=== PATIENT | male | born 1950 | race Caucasian/White ===

== ENCOUNTER 2019-01-04 16:49 | Emergency (ER) | payer MEDICARE ==
--- OUTSIDE RECORDS SUMMARY | 2019-01-04 17:09 | XMS REPORT | Continuity of Care Document ---
:1950 External Reference #:[id number] Author Name LeonardStacy winters Care Team Providers Name Role Phone Monica Ellis MD Primary Care Physician Unavailable Payers Date Identification Numbers Payment Provider Subscriber Effective: 2016 Policy Number: [id number] Medicare Blue Ppo [place] D Card PayID: [id number] [address] [address] JO ANN Fontanez [address] Effective: 2014 Policy Number: [id number] Medicare [place] D Card Expires: 2014 PayID: [id number] [address] [place] [address] Effective: 2014 Policy Number: [id number] Medicare [place] D Card Expires: 2014 PayID: [id number] [address] [place] [address] Effective: 2009 Policy Number: [id number] [facility] Ppo [place] D Card Expires: 2014 Group Name: Ppo [address] [address] PayID: [id number] JO ANN Leonard [address] Advance Directives Type Date Description Status Comment Other Directive 01/12/2018 Health Care Proxy Current and Verified Problems Active Problems Provider Date Benign essential hypertension Monika Sal, N.PRuben Onset: 10/09/2011 Gout Monika Sal, N.P. Onset: 10/09/2011 Hyperlipidemia Monika Sal N.P. Onset: 10/09/2011 Gastroesophageal reflux disease Monika Sal, N.PRuben Onset: 11/11/2012 Family History Date Family Member(s) Observation Comments Father due to CHF () - age 90 - PVD, CAD (60's), Dementia : (age 65 Mother due to Cancer, DM Years) Breast First Brother due to Cancer, () - (half Liver brother) age 60 - MS, ETOHA, Liver Cirrhosis Second Brother DM Overweight, ? 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 2.5mg Tablets Losartan Potassium 1 by mouth every 90tabs I10 Monika Sal, 01/12/2018 day N.P. 100mg Tablets Atorvastatin Calcium 1 by mouth every 90tabs E78.5 Monika Sal, 2017 day N.P. 10mg Tablets Cialis take by mouth as 8tabs Monika Sal, 11/10/2017 20mg Tablets directed as N.P. needed Omeprazole Take One Capsule 90caps I10 Monika Sal, 08/26/2017 20mg By Mouth Every N.P. Capsules DR Day Aspir-81 1 tablet daily 30tabs Unknown 81mg Tablets DR One A Day (Mvi) 1 PO qd Unknown Glucosamine daily Unknown Chondroitin 1500 Complex Hoffman-3 Fish Unknown Oil/Vitamin D3 [id number] Capsules Lutein Vision Blend Unknown Capsules History Medications Metoprolol Succinate ER 1 by mouth every 90tabs I10 Monika Sal, 2018 - 25mg day N.P. 12/18/2018 Tablets ER 24HR Sildenafil Citrate 1 - 2 tablets by 28tabs Monika Sal, 07/28/2017 - 20mg Tablets mouth N.P. 11/10/2017 approximately 1 hour before intercourse Cialis Take By Mouth as 20tabs F52.9 Monika Jonelle, 06/15/2017 - 20mg Tablets Directed as Needed N.P. 07/14/2017 Cialis 1 tablet every 3 14tabs F52.9 Monika Jonelle, 01/31/2016 - 10mg Tablets days as needed N.P. 06/15/2017 Cialis take as directed 20tabs F52.9 Monika Jonelle, 01/27/2015 - 20mg Tablets if needed N.P. 01/31/2016 Omeprazole take one capsule 90caps Monika Sal, 11/24/2012 - 40mg Capsules DR by mouth every day N.P. 08/26/2017 Omeprazole 1 po qd 90caps Monika Sal, 08/10/2012 - 20mg Capsules DR N.P. 11/24/2012 Losartan Potassium Take One Tablet By 90tabs I10 Monika Sal, 2010 - 50mg Tablets Mouth Every Day N.P. 01/12/2018 Losartan one by mouth daily 90tabs Camelia Pierce, 08/28/2010 - Potassium/Hydrochlorothia M.D., FACP 10/09/2011 zide 50-12.5mg Tablets Colchicine one by mouth twice 60tabs Camelia Pierce, 08/28/2010 - 0.6mg Tablets daily as needed M.D., FACP 10/09/2011 for gout Hydrochlorothiazide take one tablet by 90tabs Camelia Pierce, 07/04/2010 - 25mg mouth every M.D., FACP 08/28/2010 Tablets morning Viagra 1 tablet one hour 5tabs Monica - 50mg Tablets before intercourse Caleb M.DRuben 06/05/2010 as needed Fish Oil po qd 60caps Unknown - 1000mg Capsules 11/18/2017 Krill Oil Hoffman-3 take one Unknown - 500mg capsule/tablet 01/12/2018 Capsules daily by mouth Immunizations CPT Code Status Date Vaccine Lot # [id number] Given 06/13/2018 Influenza Virus Vaccine, Quadrivalent, Split, Preservative Free [id number] Given 05/18/2017 Fluzone High Dose [id number] Given 05/25/2016 Flu Vaccine NOS 56033 Given 06/13/2015 Influenza Virus Vaccine, Quadrivalent, Split, Preservative Free 01987 Given 01/27/2015 Pneumococcal Conjugate Vaccine 13 Valent For [id number] Intramuscular Use 06073 Given 01/26/2014 Pneumonia Vaccine [id number] Given 06/01/2012 Fluzone Vaccine [id number] Given 10/09/2011 Zoster (Zostavax) [id number] 57790 Given 06/05/2010 Influenza Virus 3Yrs & Over 52756 Given 05/05/2009 Influenza Virus 3Yrs & Over 43517 Given 06/13/2008 Influenza Virus 3Yrs & Over 41014 Given 06/13/2008 Influenza Virus 3Yrs & Over 68126 Given 06/23/2007 Influenza Virus 3Yrs & Over Vital Signs Date Vital Result Comment 12/18/2018 3:07pm Height 70 inches 5'10" Weight 166.00 lb Heart Rate 56 /min BP Systolic Sitting 101 mmHg BP Diastolic Sitting 60 mmHg Body Temperature 97.5 F O2 % BldC Oximetry 96 % BMI (Body Mass Index) 23.8 kg/m2 12/02/2018 11:33am Height 70 inches 5'10" Weight 168.50 lb Heart Rate 60 /min BP Systolic Sitting 131 mmHg 142/70 pt home machine BP Diastolic Sitting 71 mmHg 142/70 pt home machine Body Temperature 97.1 F O2 % BldC Oximetry 97 % BMI (Body Mass Index) 24.2 kg/m2 07/15/2018 12:54pm Height 70 inches 5'10" Weight 174.50 lb Heart Rate 60 /min BP Systolic 117 mmHg BP Diastolic 55 mmHg Body Temperature 97.0 F O2 % BldC Oximetry 98 % BMI (Body Mass Index) 25.0 kg/m2 01/12/2018 11:12am Weight 172.75 lb Heart Rate 58 /min BP Systolic 124 mmHg BP Diastolic 60 mmHg Body Temperature 97.1 F O2 % BldC Oximetry 97 % 11/21/2017 2:36pm Weight 176.00 lb Heart Rate 65 /min BP Systolic Sitting 156 mmHg BP Diastolic Sitting 72 mmHg BP Systolic Standing 162 mmHg BP Diastolic Standing 76 mmHg O2 % BldC Oximetry 96 % 07/14/2017 1:27pm Height 70 inches 5'10" Weight 172.00 lb Heart Rate 66 /min BP Systolic Sitting 124 mmHg BP Diastolic Sitting 64 mmHg O2 % BldC Oximetry 98 % BMI (Body Mass Index) 24.7 kg/m2 08/01/2016 9:42am Weight 175.00 lb Heart Rate 60 /min BP Systolic Sitting 124 mmHg BP Diastolic Sitting 78 mmHg Respiratory Rate 14 /min Body Temperature 98.5 F O2 % BldC Oximetry 96 % 01/31/2016 9:08am Height 70 inches 5'10" Weight 176.25 lb Heart Rate 58 /min BP Systolic Sitting 136 mmHg BP Diastolic Sitting 73 mmHg Body Temperature 96.9 F O2 % BldC Oximetry 98 % BMI (Body Mass Index) 25.3 kg/m2 07/31/2015 8:38am Height 70.5 inches 5'10.50" Weight 176.00 lb Heart Rate 62 /min BP Systolic Sitting 122 mmHg BP Diastolic Sitting 64 mmHg Body Temperature 96.9 F Pain Level 0 O2 % BldC Oximetry 98 % BMI (Body Mass Index) 24.9 kg/m2 01/27/2015 9:16am Height 70.5 inches 5'10.50" Weight 172.00 lb Heart Rate 60 /min BP Systolic Sitting 119 mmHg BP Diastolic Sitting 71 mmHg BMI (Body Mass Index) 24.3 kg/m2 07/27/2014 8:36am Height 70.5 inches 5'10.50" Weight 172.00 lb Heart Rate 64 /min BP Systolic Sitting 128 mmHg BP Diastolic Sitting 70 mmHg Body Temperature 97.9 F BMI (Body Mass Index) 24.3 kg/m2 01/26/2014 10:44am Height 70.5 inches 5'10.50" Weight 172.25 lb Heart Rate 64 /min BP Systolic 132 mmHg BP Diastolic 74 mmHg Respiratory Rate 16 /min Body Temperature 96.0 F BMI (Body Mass Index) 24.4 kg/m2 11/11/2012 9:23am Height 70.25 inches 5'10.25" Weight 165.75 lb Heart Rate 60 /min BP Systolic Sitting 120 mmHg BP Diastolic Sitting 62 mmHg BMI (Body Mass Index) 23.6 kg/m2 04/08/2012 1:30pm Height 70 inches 5'10" Weight 170.00 lb Heart Rate 64 /min BP Systolic Sitting 136 mmHg BP Diastolic Sitting 64 mmHg BMI (Body Mass Index) 24.4 kg/m2 10/09/2011 1:18pm Height 70 inches 5'10" Weight 173.00 lb Heart Rate 72 /min BP Systolic Sitting 128 mmHg BP Diastolic Sitting 68 mmHg BMI (Body Mass Index) 24.8 kg/m2 03/29/2011 1:26pm Height 70 inches 5'10" Weight 174.00 lb Heart Rate 64 /min BP Systolic Sitting 120 mmHg L BP Diastolic Sitting 62 mmHg L BMI (Body Mass Index) 25.0 kg/m2 09/28/2010 1:31pm Weight 172.00 lb Heart Rate 60 /min BP Systolic 124 mmHg BP Diastolic 70 mmHg 08/28/2010 1:34pm Weight 177.25 lb Heart Rate 64 /min BP Systolic 150 mmHg BP Diastolic 84 mmHg 08/07/2010 1:13pm Weight 173.00 lb Heart Rate 68 /min BP Systolic Sitting 130 mmHg BP Diastolic Sitting 68 mmHg 07/04/2010 1:15pm Weight 173.75 lb Heart Rate 60 /min BP Systolic 136 mmHg BP Diastolic 70 mmHg 06/05/2010 1:29pm Height 70.50 inches 5'10.50" Weight 177.75 lb Heart Rate 60 /min BP Systolic 148 mmHg BP Diastolic 78 mmHg BMI (Body Mass Index) 25.1 kg/m2 Results Test Date Facility Test Result H/L Range Note CBC Auto Diff 12/02/2018 [facility] White Blood 5.4 10^3/uL N 3.5-10.[address] [place] [address] [phone] Red Blood Count 4.83 10^6/uL N 4.18-5.48 Hemoglobin 15.9 g/dL N 14.0-18.0 Hematocrit 46 % N 36-46 Mean Corpuscular Volume 96 fL High 80-94 Mean Corpuscular Hemoglobin 33 pg High 27-31 Mean Corpuscular HGB Conc 34 g/dL N 31-36 Red Cell Distribution Width 13 % N 10.5-15 Platelet Count 159 10^3/uL N 150-450 Mean Platelet Volume 10.4 fL N 7.4-10.4 Abs Neutrophils 3.8 10^3/uL N 1.5-7.7 Abs Lymphocytes 1.1 10^3/uL N 1.0-4.8 Abs Monocytes 0.4 10^3/uL N 0-0.8 Abs Eosinophils 0.1 10^3/uL N 0-0.6 Abs Basophils 0 10^3/uL N 0-0.2 Abs Nucleated RBC 0 10^3/uL Granulocyte % 70.2 % Lymphocyte % 20.1 % Monocyte % 7.5 % Eosinophil % 1.6 % Basophil % 0.6 % Nucleated Red Blood Cells % 0.1 Basic Metabolic Panel 12/02/2018 [facility] Sodium 140 mmol/L N 135-145 [address] [place] [address] [phone] Potassium 4.3 mmol/L N 3.5-5.0 Chloride 101 mmol/L N 101-111 Co2 Carbon Dioxide 29 mmol/L N 22-32 Anion Gap 10 mmol/L N 2-11 Glucose 88 mg/dL N 70-100 Blood Urea Nitrogen 15 mg/dL N 6-24 Creatinine 0.98 mg/dL N 0.67-1.17 BUN/Creatinine Ratio 15.3 N 8-20 Calcium 9.8 mg/dL N 8.6-10.3 Egfr Non- 75.6 >60 Egfr 91.5 >60 1 Laboratory test 12/02/2018 [facility] TSH (Thyroid 0.88 mcIU/mL N 0.34-5.[address] Stim Horm) [place] [address] [phone] Magnesium 2.2 mg/dL N 1.9-2.7 Comp Metabolic Panel 07/15/2018 [facility] Sodium 143 mmol/L N 135-[address] [place] [address] [phone] Potassium 4.4 mmol/L N 3.5-5.0 Chloride 107 mmol/L N 101-111 Co2 Carbon Dioxide 31 mmol/L N 22-32 Anion Gap 5 mmol/L N 2-11 Glucose 103 mg/dL High 70-100 Blood Urea Nitrogen 14 mg/dL N 6-24 Creatinine 0.95 mg/dL N 0.67-1.17 BUN/Creatinine Ratio 14.7 N 8-20 Calcium 9.6 mg/dL N 8.6-10.3 Total Protein 6.4 g/dL N 6.4-8.9 Albumin 4.4 g/dL N 3.2-5.2 Globulin 2.0 g/dL N 2-4 Albumin/Globulin Ratio 2.2 N 1-3 Total Bilirubin 0.70 mg/dL N 0.2-1.0 Alkaline Phosphatase 71 U/L N 34-104 Alt 18 U/L N 7-52 Ast 20 U/L N 13-39 Egfr Non- 78.4 >60 Egfr 94.8 >60 2 Lipid Profile 07/15/2018 [facility] Triglycerides 91 mg/dL 3 (Trig/Chol/HDL) [address] [place] [address] [phone] Cholesterol 135 mg/dL 4 HDL Cholesterol 59.7 mg/dL 5 LDL Cholesterol 57 mg/dL 6 Lipid Profile 12/29/2017 [facility] Triglycerides 99 mg/dL 7 (Trig/Chol/HDL) [address] [place] [address] [phone] Cholesterol 122 mg/dL 8 HDL Cholesterol 56.6 mg/dL 9 LDL Cholesterol 46 mg/dL 10 Laboratory test finding 12/29/2017 [facility] Ast (Sgot) 18 U/L N 13-[address] [place] [address] [phone] Alt 17 U/L N 7-52 12 Laboratory test 07/16/2017 [facility] PSA Screening 1.054 N 0- 4.[address] ng/[place] [address] [phone] Testosterone 07/16/2017 [facility] Free 10.2 3.47-13.0 14 Free & Total [address] Testosterone ng/[place] [address] ng/dl [phone] Testosterone 601 ng/dL 240-950 15 Laboratory 07/16/2017 [facility] Hepatitis C Nonreactive Nonreactive 16 test finding [address] Antibody [place], [place] [phone] Lipid Profile 07/16/2017 [facility] Triglycerides 133 mg/dL 17 (Trig/Chol/HD [address] L) [place] [address] [phone] Cholesterol 181 mg/dL 18 HDL Cholesterol 51.7 mg/dL 19 LDL Cholesterol 103 mg/dL 20 Comp Metabolic Panel 07/16/2017 [facility] Sodium 140 mmol/L N 133-[address] [place] [address] [phone] Potassium 4.1 mmol/L N 3.5-5.0 Chloride 105 mmol/L N 101-111 Co2 Carbon Dioxide 30 mmol/L N 22-32 Anion Gap 5 mmol/L N 2-11 Glucose 96 mg/dL N 70-100 Blood Urea Nitrogen 14 mg/dL N 6-24 Creatinine 0.95 mg/dL N 0.67-1.17 BUN/Creatinine Ratio 14.7 N 8-20 Calcium 9.7 mg/dL N 8.6-10.3 Total Protein 6.5 g/dL N 6.4-8.9 Albumin 4.3 g/dL N 3.2-5.2 Globulin 2.2 g/dL N 2-4 Albumin/Globulin Ratio 2.0 N 1-3 Total Bilirubin 0.70 mg/dL N 0.2-1.0 Alkaline Phosphatase 80 U/L N 34-104 Alt 15 U/L N 7-52 Ast 18 U/L N 13-39 Egfr Non- 78.6 >60 Egfr 101.1 >60 21 Laboratory test 04/18/2016 [facility] Surgical SEE RESULT 22, [address] [place] [address] [phone] Comp Metabolic 02/07/2016 [facility] Sodium 139 mmol/L N 133- [address] [place] [address] [phone] Potassium 4.6 mmol/L N 3.5-5.0 Chloride 103 mmol/L N 101-111 Co2 Carbon Dioxide 31 mmol/L N 22-32 Anion Gap 5 mmol/L N 2-11 Glucose 97 mg/dL N 70-100 Blood Urea Nitrogen 15 mg/dL N 6-24 Creatinine 1.01 mg/dL N 0.67-1.17 BUN/Creatinine Ratio 14.9 N 8-20 Calcium 9.9 mg/dL N 8.6-10.3 Total Protein 6.8 g/dL N 6.4-8.9 Albumin 4.5 g/dL N 3.2-5.2 Globulin 2.3 g/dL N 2-4 Albumin/Globulin Ratio 2.0 N 1-3 Total Bilirubin 0.80 mg/dL N 0.2-1.0 Alkaline Phosphatase 77 U/L N 34-104 Alt 16 U/L N 7-52 Ast 18 U/L N 13-39 Egfr Non- 73.7 N >60 Egfr 94.8 N >60 24 Lipid Profile 02/07/2016 [facility] Triglycerides 103 mg/dL N 25 (Trig/Chol/HDL) [address] [place] [address] [phone] Cholesterol 204 mg/dL N 26 HDL Cholesterol 58.3 mg/dL N 27 LDL Cholesterol 125 mg/dL N 28 Basic Metabolic Panel 07/12/2015 [facility] Sodium 138 mmol/L N 133-145 [address] [place] [address] [phone] Potassium 4.4 mmol/L N 3.5-5.0 Chloride 104 mmol/L N 101-111 Co2 Carbon Dioxide 28 mmol/L N 22-32 Anion Gap 6 mmol/L N 2-11 Glucose 94 mg/dL N 70-100 Blood Urea Nitrogen 14 mg/dL N 6-24 Creatinine 0.94 mg/dL N 0.67-1.17 BUN/Creatinine Ratio 14.9 N 8-20 Calcium 9.7 mg/dL N 8.6-10.3 Egfr Non- 80.0 N >60 Egfr 102.9 N >60 29 Comp Metabolic Panel 07/19/2014 [facility] Sodium 140 mmol/L N 133-145 [address] [place] [address] [phone] Potassium 4.1 mmol/L N 3.5-5.0 30 Chloride 105 mmol/L N 101-111 Co2 Carbon Dioxide 29 mmol/L N 22-32 Anion Gap 6 mmol/L N 2-11 Glucose 96 mg/dL N 70-100 Blood Urea Nitrogen 13 mg/dL N 6-24 Creatinine 1.04 mg/dL N 0.67-1.17 BUN/Creatinine Ratio 12.5 N 8-20 Calcium 9.3 mg/dL N 8.6-10.3 Total Protein 6.3 g/dL Low 6.4-8.9 Albumin 4.3 g/dL N 3.2-5.2 Globulin 2.0 g/dL N 2-4 Albumin/Globulin Ratio 2.2 N 1-3 Total Bilirubin 0.80 mg/dL N 0.2-1.0 Alkaline Phosphatase 62 U/L N 34-104 Alt 15 U/L N 7-52 Ast 20 U/L N 13-39 Egfr Non- 71.5 N >60 Egfr 91.9 N >60 31 Laboratory test 07/19/2014 [facility] Uric Acid 6.2 mg/dL N 4.4-7.6 finding [address] [place] [address] [phone] Lipid Profile 07/19/2014 [facility] Triglycerides 106 mg/dL N 32 (Trig/Chol/HDL) [address] [place] [address] [phone] Cholesterol 158 mg/dL N 33 HDL Cholesterol 48.4 mg/dL N 34 LDL Cholesterol 88 mg/dL N 35 Laboratory test 11/17/2012 [facility] PSA Diagnostic 1.0 ng/mL 0-4.0 36 finding [address] [place] [address] [phone] Lipid Profile 11/17/2012 [facility] Triglycerides 113 mg/dL 40-200 (Trig/Chol/HDL) [address] [place] [address] [phone] Cholesterol 160 mg/dL Less than 200 HDL Cholesterol 51 mg/dL 40-60 37 Cholesterol/HDL Ratio 3.1 Average 1-4.44 LDL Cholesterol 86.4 mg/dL Less Than 100 38 Comp Metabolic Panel 11/17/2012 [facility] Sodium 139 mmol/L 133-145 [address] [place] [address] [phone] Potassium 4.1 mmol/L 3.5-5.0 Chloride 104 mmol/L 101-111 Co2 Carbon Dioxide 28.0 mmol/L 22-32 Anion Gap 7.0 mmol/L 2-11 Glucose 96 mg/dL 70-100 Blood Urea Nitrogen 12 mg/dL 6-24 Creatinine 1.00 mg/dL 0.50-1.40 BUN/Creatinine Ratio 12.0 8-20 Calcium 9.8 mg/dL 8.1-9.9 Total Protein 6.4 g/dL 6.2-8.1 Albumin 4.2 g/dL 3.2-5.2 Globulin 2.2 g/dL 2-4 Albumin/Globulin Ratio 1.9 1-3 Total Bilirubin 1.0 mg/dL 0.4-1.5 Alkaline Phosphatase 68 U/L 30-110 Alt 20 U/L 14-54 Ast 23 U/L 12-42 Egfr Non- 75.2 >60 Egfr 96.7 >60 39 Surgical 05/26/2012 [facility] Surgical [address] Pathology <SEE NOTE> [place] [address] [phone] Comp Metabolic 10/14/2011 [facility] Sodium 137 mmol/L 135- Panel [address] [place] [address] [phone] Potassium 4.4 mmol/L 3.5-5.0 Chloride 104 mmol/L 101-111 Co2 (Carbon Dioxide) 29.0 mmol/L 22-32 Anion Gap 4.0 mmol/L 2-11 41 Glucose 107 mg/dL High 70-100 BUN 10 mg/dL 6-24 Creatinine 1.1 mg/dL 0.50-1.40 One Over Creatinine 0.90 BUN/Creatinine Ratio 9.1 8-20 Calcium 9.3 mg/dL 8.1-9.9 Total Protein 6.4 GM/DL 6.2-8.1 Albumin 4.3 GM/DL 3.2-5.2 Globulin 2.1 GM/DL 2-4 Albumin/Globulin Ratio 2.0 1-3 Bilirubin Total 1.1 mg/dL 0.4-1.5 42 Alkaline Phosphatase 64 U/L 39-117 Alt (SGPT) 21 U/L 17-63 Ast (Sgot) 22 U/L 12-42 eGFR Non- 67.6 > 60 eGFR 86.9 > 60 43 Lipid Profile 10/14/2011 [facility] Triglyceride 204 mg/dL High 40-200 (Trig/Chol/HDL) [address] [place] [address] [phone] Cholesterol 185 mg/dL Less Than 200 44 High Density Lipoprotein 47 mg/dL 40-60 45 Cholesterol/HDL Ratio 3.94 AVERAGE 1-4.97 Low Density Lipoprotein 97 mg/dL Less Than 100 46 Laboratory test 10/14/2011 [facility] Uric Acid 6.3 mg/dL 2.6 -7.2 finding [address] [place] [address] [phone] PSA 0.87 NG/ML 0-4 47 1 Because ethnic data is not always readily available, this report includes an eGFR for both -Americans and non- Americans. The National Kidney Disease Education Program (NKDEP) does not endorse the use of the MDRD equation for patients that are not between the ages of 18 and 70, are , have extremes of body size, muscle mass, or nutritional status, or are non- or non-. According to the National Kidney Foundation, irrespective of diagnosis, the stage of the disease is based on the level of kidney function: Stage Description GFR(mL/min/1.73 m(2)) 1 Kidney damage with normal or decreased GFR 90 2 Kidney damage with mild decrease in GFR 60-89 3 Moderate decrease in GFR 30-59 4 Severe decrease in GFR 15-29 5 Kidney failure <15 (or dialysis) 2 Because ethnic data is not always readily available, this report includes an eGFR for both -Americans and non- Americans. The National Kidney Disease Education Program (NKDEP) does not endorse the use of the MDRD equation for patients that are not between the ages of 18 and 70, are , have extremes of body size, muscle mass, or nutritional status, or are non- or non-. According to the National Kidney Foundation, irrespective of diagnosis, the stage of the disease is based on the level of kidney function: Stage Description GFR(mL/min/1.73 m(2)) 1 Kidney damage with normal or decreased GFR 90 2 Kidney damage with mild decrease in GFR 60-89 3 Moderate decrease in GFR 30-59 4 Severe decrease in GFR 15-29 5 Kidney failure <15 (or dialysis) 3 Desirable: <150 Borderline High: 150-199 High: 200-499 Very High: >500 4 Desirable: <200 Borderline High: 200-239 High: >239 5 Low: <40 Desirable: 40-60 High: >60 6 Desirable: <100 Near Optimal: 100-129 Borderline High: 130-159 High: 160-189 Very High: >189 7 Desirable: <150 Borderline High: 150-199 High: 200-499 Very High: >500 8 Desirable: <200 Borderline High: 200-239 High: >239 9 Low: <40 Desirable: 40-60 High: >60 10 Desirable: <100 Near Optimal: 100-129 Borderline High: 130-159 High: 160-189 Very High: >189 11 FASTING 10 HOUR DO THIS IN ABOUT 6 WEEKS 12 FASTING 10 HOUR DO THIS IN ABOUT 6 WEEKS 13 Serum levels of PSA measured using the [employer] DXI Hybritech immunoassay should not be interpreted as absolute evidence of the presence or absence of disease. The PSA value should be used in conjunction with other pertinent clinical diagnostic procedures. The values obtained with different assay methods or kits cannot be used interchangeably. 14 ADDITIONAL INFORMATION Testing performed by [facility]. This test was developed and its performance characteristics determined by [facility] in a manner consistent with CLIA requirements. This test has not been cleared or approved by the U.S. Food and Drug Administration. 15 ADDITIONAL INFORMATION Testing performed by Liquid Chromatography-Tandem Mass Spectrometry (LC-MS/MS). This test was developed and its performance characteristics determined by [facility] in a manner consistent with CLIA requirements. This test has not been cleared or approved by the U.S. Food and Drug Administration. Test Performed by: [facility] [address] [place] [address] 16 FASTING 10 HOUR 17 Desirable: <150 Borderline High: 150-199 High: 200-499 Very High: >500 18 Desirable: <200 Borderline High: 200-239 High: >239 19 Low: <40 Desirable: 40-60 High: >60 20 Desirable: <100 Near Optimal: 100-129 Borderline High: 130-159 High: 160-189 Very High: >189 21 Because ethnic data is not always readily available, this report includes an eGFR for both -Americans and non- Americans. The National Kidney Disease Education Program (NKDEP) does not endorse the use of the MDRD equation for patients that are not between the ages of 18 and 70, are , have extremes of body size, muscle mass, or nutritional status, or are non- or non-. According to the National Kidney Foundation, irrespective of diagnosis, the stage of the disease is based on the level of kidney function: Stage Description GFR(mL/min/1.73 m(2)) 1 Kidney damage with normal or decreased GFR 90 2 Kidney damage with mild decrease in GFR 60-89 3 Moderate decrease in GFR 30-59 4 Severe decrease in GFR 15-29 5 Kidney failure <15 (or dialysis) 22 [id number] 23 SEE RESULT BELOW Name: HEAVEN URENA : [address]: Hernando Snyder MD Acct: [id number] Unit: [id number] AGE: 65 Location: [facility] Re04/18/16 SEX: M Status: DEP REF SPEC: [id number] MICHAEL: 04/18/16-[address] [facility] [address]: Hernando Snyder MD REQ: [id number] RECD: 04/18/16-1299 STATUS: JALEN ANDREW DR: Monika Sal REGISTER IN CHANCERY _ ORDERED: LEVEL IV COMMENTS: [id number] FINAL DIAGNOSIS Gastroesophageal junction, biopsy: -- Columnar-type mucosa with mild chronic inflammation. -- Negative for intestinal metaplasia and dysplasia. CLINICAL HISTORY No history given POST-OPERATIVE DIAGNOSIS Esophagus - Hinton's, biopsied; stomach and duodenum - normal GROSS DESCRIPTION The specimen is received in formalin labeled, EG Junction Biopsy, and consists of a 0.7 x 0.2 x 0.1 cm pineda irregular soft tissue fragment, which is submitted entirely in one cassette. Signed (signature on file) Laura Bautista MD [id number] END OF REPORT * ML=Testing performed at Main Lab DEPARTMENT OF PATHOLOGY, [address] [place] [address] Dewayne Worley M.D. Director [facility] # [id number] 24 Because ethnic data is not always readily available, this report includes an eGFR for both -Americans and non- Americans. The National Kidney Disease Education Program (NKDEP) does not endorse the use of the MDRD equation for patients that are not between the ages of 18 and 70, are , have extremes of body size, muscle mass, or nutritional status, or are non- or non-. According to the National Kidney Foundation, irrespective of diagnosis, the stage of the disease is based on the level of kidney function: Stage Description GFR(mL/min/1.73 m(2)) 1 Kidney damage with normal or decreased GFR 90 2 Kidney damage with mild decrease in GFR 60-89 3 Moderate decrease in GFR 30-59 4 Severe decrease in GFR 15-29 5 Kidney failure <15 (or dialysis) 25 Desirable <150 Borderline high 150-199 High 200-499 Very High >500 26 Desirable <200 Borderline high 200-239 High >239 27 Low <40 Desirable: 40-60 High: >60 28 Desirable: <100 mg/dL Near Optimal: 100-129 mg/dL Borderline High: 130-159 mg/dL High: 160-189 mg/dL Very High: >189 mg/dL 29 Because ethnic data is not always readily available, this report includes an eGFR for both -Americans and non- Americans. The National Kidney Disease Education Program (NKDEP) does not endorse the use of the MDRD equation for patients that are not between the ages of 18 and 70, are , have extremes of body size, muscle mass, or nutritional status, or are non- or non-. According to the National Kidney Foundation, irrespective of diagnosis, the stage of the disease is based on the level of kidney function: Stage Description GFR(mL/min/1.73 m(2)) 1 Kidney damage with normal or decreased GFR 90 2 Kidney damage with mild decrease in GFR 60-89 3 Moderate decrease in GFR 30-59 4 Severe decrease in GFR 15-29 5 Kidney failure <15 (or dialysis) 30 Potassium reference range changed effective 07/03/14 31 Because ethnic data is not always readily available, this report includes an eGFR for both -Americans and non- Americans. The National Kidney Disease Education Program (NKDEP) does not endorse the use of the MDRD equation for patients that are not between the ages of 18 and 70, are , have extremes of body size, muscle mass, or nutritional status, or are non- or non-. According to the National Kidney Foundation, irrespective of diagnosis, the stage of the disease is based on the level of kidney function: Stage Description GFR(mL/min/1.73 m(2)) 1 Kidney damage with normal or decreased GFR 90 2 Kidney damage with mild decrease in GFR 60-89 3 Moderate decrease in GFR 30-59 4 Severe decrease in GFR 15-29 5 Kidney failure <15 (or dialysis) 32 Desirable <150 Borderline high 150-199 High 200-499 Very High >500 33 Desirable <200 Borderline high 200-239 High >239 34 Low <40 Desirable: 40-60 High: >60 35 Desirable <100 Near Optimal 100-129 Borderline high 130-159 High 160-189 Very High >189 36 Serum levels of PSA measured using the [employer] DXI Hybritech immunoassay should not be interpreted as absolute evidence of the presence or absence of disease. The PSA value should be used in conjunction with other pertinent clinical diagnostic procedures. The values obtained with different assay methods or kits cannot be used interchangeably. 37 HDL Interpretation: Undesirable: High Risk: Less than 40 MG/DL Desirable: Low Risk: Greater than 60 MG/DL 38 LDL Interpretation: Low Risk Optimal Level: LDL Less than 100 MG/DL Near or Above Optimal: LDL 100-129 MG/DL Borderline High Risk: LDL 130-159 MG/DL High Risk: LDL 160-189 MG/DL Very High Risk: LDL Greater than 189 MG/DL 39 Because ethnic data is not always readily available, this report includes an eGFR for both -Americans and non- Americans. The National Kidney Disease Education Program (NKDEP) does not endorse the use of the MDRD equation for patients that are not between the ages of 18 and 70, are , have extremes of body size, muscle mass, or nutritional status, or are non- or non-. According to the National Kidney Foundation, irrespective of diagnosis, the stage of the disease is based on the level of kidney function: Stage Description GFR(mL/min/1.73 m(2)) 1 Kidney damage with normal or decreased GFR 90 2 Kidney damage with mild decrease in GFR 60-89 3 Moderate decrease in GFR 30-59 4 Severe decrease in GFR 15-29 5 Kidney failure <15 (or dialysis) 40 ---- RUN DATE: 05/28/12 [facility] NMI LIVE PAGE 1 RUN TIME: 1501 Specimen Inquiry RUN USER: INTERFACE -- Name: HEAVEN URENA Lorena Status: REG REF Re05/26/12 Age/Sex: 62/M Unit#: [id number] Location: [facility] : 48 -- Specimen: [id number] Spec Date:05/26/12- Dr: Hernando wray MD Spec Type: SURGICAL P Received:05/27/12-1150 Copies to: Monica mcmahon MD SPECIMEN BIOPSY POLYP AT GASTRIC FUNDUS HISTORY POST-OP DIAGNOSIS: Esophsagus - Grade B eosinophilic esophagitis; stomach - gastritis, biopsied; duodenum - normal. Colonoscopy to cecum -tics in as cending CLINICAL INFORMATION: Dysphagia, food sticking; routine colorectal scree nabil GROSS DESCRIPTION The specimen is received in formalin labelled Heaven Urena, Biopsy Polyp at Gastric Fundus Polyp, and consists of multiple pineda soft tissue fragments measuring 0.4 x 0.2 x 0.2 cm. in aggregate. Submitted entirely, one cassette. DIAGNOSIS Stomach, fundus, biopsy: Benign fundic gland polyp. Signed Electronically by: DEWAYNE WORLEY MD 05/28/12 1459 -- -- DEPARTMENT OF PATHOLOGY, [address] [place] [id number] [facility] Permit #[id number] Dewayne Worley M.D. Director Matt Walsh M.D. Farrowing Manager sherif -- 41 Anion gap measurement may be of limited value in the presence of any alkalosis, especially in a combined acid base disorder. . 42 A metabolite of Naproxen, O-desmethylnaproxen, has been shown to interfere with the [place] method for measuring total bilirubin. Samples from patients who have taken Naproxen have shown spurious elevation in total bilirubin levels. 43 Because ethnic data is not always readily available, this report includes an eGFR for both -Americans and non- Americans. The National Kidney Disease Education Program (NKDEP) does not endorse the use of the MDRD equation for patients that are not between the ages of 18 and 70, are , have extremes of body size, muscle mass, or nutritional status, or are non- or non-. According to the National Kidney Foundation, irrespective of diagnosis, the stage of the disease is based on the level of kidney function: Stage Description GFR(mL/min/1.73 m(2)) 1 Kidney damage with normal or decreased GFR 90 2 Kidney damage with mild decrease in GFR 60-89 3 Moderate decrease in GFR 30-59 4 Severe decrease in GFR 15-29 5 Kidney failure <15 (or dialysis) 44 CHOLESTEROL INTERPRETATION: Desirable: Less than 200 MG/DL Borderline-High Risk: 200-239 MG/DL High-Risk: 240 MG/DL and over 45 HDL INTERPRETATION: Undesirable: High Risk: Less than 40 MG/DL Desirable: Low Risk: Greater than 60 MG/DL 46 LDL INTERPRETATION: Low Risk Optimal Level: LDL Less than 100 MG/DL Near or Above Optimal: LDL 100-129 MG/DL Borderline High Risk: LDL 130-159 MG/DL High Risk: LDL 160-189 MG/DL Very High Risk: LDL Greater than 189 MG/DL 47 * SERUM LEVELS OF PSA MEASURED USING THE HIMA Fablistic ACCESS HYBRITECH IMMUNOASSAY SHOULD NOT BE INTERPRETED ABSOLUTE EVIDENCE OF THE PRESENCE OR ABSENCE OF DISEASE. THE PSA VALUE SHOULD BE USED IN CONJUNCTION WITH OTHER PERTINENT CLINICAL DIAGNOSTIC PROCEDURES. The values obtained with different assay methods or kits cannot be used interchangeably. Procedures Date Code Description Status 12/14/2018 08828 ECG Monitor/Recording W/Visual Superimposition Scanning Completed 12/02/2018 81920 EKG Tracing & Interpretation Completed 07/31/2015 64172 EKG Tracing & Interpretation Completed 05/26/2012 [id number] Colonoscopy Completed 10/09/2011 30292 EKG Tracing & Interpretation Completed 05/05/2009 27038 EKG Tracing & Interpretation Completed 01/29/2007 33155 EKG Tracing & Interpretation Completed 01/29/2007 08000 EKG Tracing & Interpretation Completed 02/21/2003 [id number] Colonoscopy Completed Encounters Type Date Location Provider Dx Diagnosis Office Visit 12/02/2018 [facility] Monika Sal, N.P. R00.2 Palpitations 11:20a Medicine I10 Essential (primary) hypertension Office Visit 01/12/2018 11:20a [facility] Abdias Arroyo0 Essential ( primary) Medicine N.P. hypertension E78.5 Hyperlipidemia, unspecified Office Visit 11/21/2017 2:20p [facility] Monica I10 Essential ( primary) Medicine Rajesh Ellis hypertension E78.5 Hyperlipidemia, unspecified Office Visit 08/01/2016 9:40a [facility] Abdias Arroyo0 Essential Medicine N.P. (primary) hypertension Office Visit 01/31/2016 9:20a [facility] Monika Sal, Z00.00 Encntr for general Medicine N.P. adult medical exam w/o abnormal findings I10 Essential (primary) hypertension K21.9 Gastro-esophageal reflux disease without esophagitis E78.0 Pure hypercholesterolemia Office Visit 07/31/2015 8:40a [facility] Monika Sal, I10 Essential ( primary) Medicine N.P. hypertension M25.512 Pain in left shoulder M25.511 Pain in right shoulder R00.1 Bradycardia, unspecified Office Visit 01/27/2015 9:20a [facility] Monika Sal, V70.0 Examination Medicine N.P. General Medical Routine AT Health Care Facility 530.81 Esophageal Reflux 401.1 Hypertension Benign 272.4 Hyperlipidemia Other Unspec 719.41 Pain Joint Shoulder Region 719.43 Pain Joint Forearm V41.7 Sexual Function Problem 302.72 Psychosexual Dysfunction W/ Inhibited Sexual Excitement V03.82 Streptococcus Pneumoniae Vaccination Spec Other Office Visit 07/27/2014 8:40a [facility] Monika Sal, 401.1 Hypertension Benign Medicine N.P. Office Visit 01/26/2014 10:40a [facility] Monika Sal, V70.0 Examination General Medicine N.P. 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 General Medical Routine AT Health Care Facility 274.9 Gout Unspec 530.81 Esophageal Reflux 401.1 Hypertension Benign 272.4 Hyperlipidemia Other Unspec 389.9 Hearing Loss Unspec Office Visit 04/08/2012 1:20p [facility] Monika Sal, 401.1 Hypertension Benign Medicine N.P. 787.20 Dysphagia, Unspecified Office Visit 10/09/2011 1:20p [facility] Monika Sal, V70.0 Examination Medicine N.P. General Medical Routine AT Health Care Facility 401.1 Hypertension Benign 272.4 Hyperlipidemia Other Unspec 274.9 Gout Unspec v04.89 Need For Prophylactic Vaccination & Inoculation Other Virus Office Visit 03/29/2011 DO Not Use Monika Varn, 401.1 Hypertension 1:40p [facility] N.P. Benign Office Visit 09/28/2010 DO Not Use Monika Varn, 401.1 Hypertension 1:30p [facility] N.P. Benign Office Visit 08/28/2010 DO Not Use Monika Varn, 401.1 Hypertension 1:30p [place] N.P. Benign 274.9 Gout Unspec Office Visit 08/07/2010 DO Not Use Monika Varn, 401.1 Hypertension 1:15p [place] N.P. Benign Office Visit 07/04/2010 DO Not Use Monika Sal, 401.1 Hypertension 1:15p [facility] N.P. Benign 883.0 Open Wound Finger(S) W/O Complication Office Visit 06/05/2010 DO Not Use Monika Sal, V70.0 Examination 1:30p [place] N.P. General Medical Routine AT [facility] V04.81 Need For Prophylactic Vaccination & Inoculation/Influenza Office Visit 05/05/2009 DO Not Use María Elena Ruiz0.0 Examination 1:15p Tianna Shaffer M.D. General Medical Routine AT [facility] 607.89 Penis Disorder Other 796.2 Blood Pressure Reading Elevated W/O Hypertension V04.81 Need For Prophylactic Vaccination & Inoculation/Influenza Office Visit 06/13/2008 1:30p DO Not Use Deena Ruiz 274.9 Gout Unspec Tianna Mena V04.81 Need For Prophylactic Vaccination & Inoculation/Influenza Office Visit 03/15/2008 DO Not Use María Elena Ruiz0.0 Examination 9:00a Tianna Shaffer M.D. General Medical Routine AT [facility] Office Visit 01/29/2007 DO Not Use María Elena Ruiz0.0 Examination 2:00p Tianna Shaffer M.D. General Medical Routine AT [facility] 272.0 Hypercholesterolemia Pure Plan of Treatment Future Appointment(s):08/02/2019 9:20 am - Monika Sal, N.P. at [facility] Mbcpgwrp27/19/2019 - Monika Sal N.P.I10 Essential (primary) hypertensionNew Medication:Amlodipine Besylate 2.5 mg - 1 by mouth every dayComments:I want you to stop taking Metoprolol since you are not feeling well on it. I have prescribed a different medication, Amlodipine 2.5 mg. Take 1 tablet daily along with your Losartan.I will give you a call in another month to see how you do.
[2019-01-04 17:11] VITALS: BP 122/60
[2019-01-04] MEDS ORDERED: Tetan/Diph/Pertus SYR(Tdap)* 0.5 ML SYR(BOOSTRIX) use SYR IM ONE (17:12)
[2019-01-04] MEDS ORDERED: Lidocaine 1%* 5 ML VIAL INJ ONE (17:18)
--- NOTE | 2019-01-04 17:18 | UC ---
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 no limited rom or fb sensation. last tetanus is not known. - History of Current Complaint Chief Complaint: UCLaceration Stated Complaint: LACERATION INDEX FINGER Time Seen by Provider: 01/04/19 17:07 Hx Obtained From: Patient Onset/Duration: Sudden Onset Timing: Constant Pain Intensity: 0 Aggravating: NOTHING Associated Signs & Symptoms: Negative: Fever - Allergy/Home Medications Allergies/Adverse Reactions: Allergies Allergy/AdvReac Type Severity Reaction Status Date / Time Penicillins Allergy Rash Verified 01/04/19 17:11 Home Medications: Home Medications Aspirin 81 mg CHEW TAB* [Aspirin Low Dose TAB*] 81 mg PO DAILY 01/04/19 [ History Confirmed 01/04/19] Atorvastatin* [Lipitor*] 20 mg PO DAILY 01/04/19 [History Confirmed 01/04/19] Colchicine* [Colcrys*] 0.6 mg PO DAILY PRN 01/04/19 [History Confirmed 01/04/19] Losartan TAB* [Cozaar TAB*] 100 mg PO DAILY 01/04/19 [History Confirmed 01/04/19 ] Metoprolol Tartrate TAB* [Lopressor TAB*] 25 mg PO DAILY 01/04/19 [History Confirmed 01/04/19] Multivitamin [Multiple Vitamins] 1 each PO DAILY 01/04/19 [History Confirmed 02/17] Omeprazole 20 mg PO DAILY 01/04/19 [History Confirmed 01/04/19] Tadalafil [Cialis] 2.5 mg PO DAILY 01/04/19 [History Confirmed 01/04/19] PMH/Surg Hx/FS Hx/Imm Hx Endocrine History: Dyslipidemia Cardiovascular History: Hypertension GI/ History: Gastroesophageal Reflux - Surgical History Surgical History: Yes Surgery Procedure, Year, and Place: back, tonsils - Family History Known Family History: Positive: Non-Contributory - Social History Lives: With Family Alcohol Use: Weekly Substance Use Type: None Smoking Status (MU): Never Smoked Tobacco - Immunization History Most Recent Tetanus Shot: unsure Review of Systems All Other Systems Reviewed And Are Negative: No Constitutional: Negative: Fever Motor: Negative: Decreased ROM Neurological: Negative: Weakness, Paresthesia, Numbness Physical Exam Triage Information Reviewed: Yes Appearance: Well-Appearing Vital Signs: Initial Vital Signs Temp 97.3 F 01/04/19 17:09 Pulse 55 01/04/19 17:09 Resp 16 01/04/19 17:09 BP 122/60 01/04/19 17:09 Pulse Ox 99 01/04/19 17:09 Vital Signs Reviewed: Yes Eyes: Positive: Conjunctiva Clear Respiratory: Positive: No respiratory distress Cardiovascular: Positive: RRR Musculoskeletal: Positive: Other: - R hand = 2cm laceration dorsal R index finger. no active bleeding. tendon seen but intact. s/v/m is intact. rest of hand is unremarkable. Neurological: Positive: Alert Psychological: Positive: Age Appropriate Behavior Skin Exam: Normal Course/Dx - Course Course Of Treatment: Procedure: time out. R index prep betadine. local with 1% lidocaine. wound explored, tendon seen but intact. no FB's. irrigated large amounts of sterile water. prep betadine. drape. closed 5-0 nylon with 2 simple and 1 horizontal mattress stitch. scant bleeding. sterile technique used and pt tolerated well. antibiotic and dressing applied by nursing. - Diagnoses Provider Diagnosis: Laceration of right index finger Discharge - Sign-Out/Discharge Documenting (check all that apply): Patient Departure All imaging exams completed and their final reports reviewed: No Studies - Discharge Plan Condition: Stable Disposition: HOME Prescriptions: Cephalexin CAP* [Keflex CAP*] 500 mg PO TID 7 Days #21 cap Patient Education Materials: Care For Your Stitches (ED) Referrals: Monika Sal NP [Primary Care Provider] - Additional Instructions: FOLLOW UP PRIMARY CARE OR RETURN HERE IN 7-10 DAYS FOR SUTURE REMOVAL - Billing Disposition and Condition Condition: STABLE Disposition: Home
== END 2019-01-04 17:52 | disposition home or self-care (01) ==
LOC: UCCORT 16:49
DX: S61.210A Laceration without foreign body of right index finger without damage to nail, initial encounter (principal); W26.8XXA Contact with other sharp object(s), not elsewhere classified, initial encounter; Y92.69 Other specified industrial and construction area as the place of occurrence of the external cause; E78.00 Pure hypercholesterolemia, unspecified; I10 Essential (primary) hypertension; K21.9 Gastro-esophageal reflux disease without esophagitis; Z79.82 Long term (current) use of aspirin; Z88.0 Allergy status to penicillin
CPT/HCPCS: 12001; 90471; 90715; 99212; G0463

== ENCOUNTER 2019-01-11 09:08 | Emergency (ER) | payer MEDICARE ==
[2019-01-11 09:30] VITALS: BP 128/56
--- NOTE | 2019-01-11 09:41 | UC ---
HPI Wound/Suture Re-check - HPI Summary HPI Summary: 68 year old male last seen 01/04 for laceration to right index finger, sutured with 2 simple, one mattress suture. no difficulty with healing, no bleeding history. no drainage, erythema, no pain. requesting removal. - History Of Current Complaint Chief Complaint: UCSkin Stated Complaint: STITCH REMOVAL-DONE HERE Time Seen by Provider: 01/11/19 09:23 Hx Obtained From: Patient Onset/Duration: Sudden Onset, Lasting Days Pain Intensity: 0 Pain Scale Used: 0-10 Numeric - Allergies/Home Medications Allergies/Adverse Reactions: Allergies Allergy/AdvReac Type Severity Reaction Status Date / Time Penicillins Allergy Rash Verified 01/11/19 09:24 Home Medications: Home Medications Beta Zach 1 tab PO DAILY 01/11/19 [History] PMH/Surg Hx/FS Hx/Imm Hx Previously Healthy: Yes - Surgical History Surgical History: Yes Surgery Procedure, Year, and Place: back, tonsils - Family History Known Family History: Positive: Non-Contributory - Social History Alcohol Use: Daily Alcohol Amount: wine Substance Use Type: None Smoking Status (MU): Never Smoked Tobacco - Immunization History Most Recent Tetanus Shot: unsure Review of Systems All Other Systems Reviewed And Are Negative: Yes Skin: Positive: Negative Musculoskeletal: Positive: Negative Is Patient Immunocompromised?: No Physical Exam Triage Information Reviewed: Yes Appearance: Well-Appearing, No Pain Distress, Well-Nourished Vital Signs: Initial Vital Signs Temp 97.4 F 01/11/19 09:26 Pulse 57 01/11/19 09:26 Resp 16 01/11/19 09:26 BP 128/56 01/11/19 09:26 Pulse Ox 99 01/11/19 09:26 Vital Signs Reviewed: Yes Eyes: Positive: Conjunctiva Clear Musculoskeletal Exam: Normal Musculoskeletal: Positive: Strength Intact, ROM Intact, No Edema Neurological Exam: Normal Neurological: Positive: Alert Psychological Exam: Normal Skin: Positive: Other - laceration to base of R 2nd finger over MCP, well healed , sutures intact. sutures removed without difficulty. I c/d/i Course/Dx - Course Course Of Treatment: sutures removed without difficulty, steri strip placed. follow up with primary with any concerns. - Diagnosis Provider Diagnosis: Visit for suture removal Discharge - Sign-Out/Discharge Documenting (check all that apply): Patient Departure All imaging exams completed and their final reports reviewed: No Studies - Discharge Plan Condition: Good Disposition: HOME Patient Education Materials: Stitches Removal (ED) Referrals: Monika Sal NP [Primary Care Provider] - Additional Instructions: - Keep area clean, dry - Do not submerge under water x 24 hours - Follow up with primary physician for any redness, drainage, pain - STeri strip will fall off on own. - Billing Disposition and Condition Condition: GOOD Disposition: Home - Attestation Statements Provider Attestation: Per institutional requirements, I have reviewed the chart, however, I was not consulted specifically or made aware of this patient by the midlevel provider. I did not personally evaluate, interact with , or disposition this patient.
== END 2019-01-11 09:45 | disposition home or self-care (01) ==
LOC: UCCORT 09:08
DX: Z48.02 Encounter for removal of sutures (principal)